=== PATIENT | female | born 1965 | race Two or more races ===

== ENCOUNTER 2018-05-26 10:07 | Emergency (ER) | payer OTHER ==
[~2018-05-26] VITALS: Ht 160 cm; Wt 65.8 kg
[2018-05-26 11:07] VITALS: BP 145/72
[2018-05-26] MEDS ORDERED: Acetaminophen 500mg (ES) tab PO ONE (11:15)
[2018-05-26 11:51] LABS: APPEARANCE,URINE CLEAR; BILIRUBIN, URINE NEGATIVE (NEGATIVE); GLUCOSE, URINE (UA) NEGATIVE (NEGATIVE); KETONES,URINE NEGATIVE (NEGATIVE); LEUKOCYTE ESTERASE ,URINE 2+ (NEGATIVE); NITRITE,URINE NEGATIVE (NEGATIVE); PH,URINE 7 (4.5-8.0); PROTEIN,URINE NEGATIVE (NEGATIVE); UROBILINOGEN,URINE NORMAL MG/DL (0.0-1.0)
[2018-05-26 11:55] LABS: BASOPHILS % (AUTO) 0.6 % (0.0-2.0); EOSINOPHILS % (AUTO) 1.6 % (0.0-3.0); HEMATOCRIT 40.5 % (37.0-47.0); HEMOGLOBIN 13.7 G/DL (12.0-16.0); LYMPHOCYTES % (AUTO) 20.4 % (20.0-45.0); MEAN CORPUSCULAR VOLUME 84 FL (80-99); MONOCYTES % (AUTO) 7.6 % (1.0-10.0); NEUTROPHILS % (AUTO) 69.9 % (45.0-75.0); PLATELET COUNT 182 K/UL (150-450); RED BLOOD COUNT 4.85 M/UL (4.20-5.40); RED CELL DISTRIBUTION WIDTH 12.3 % (11.6-14.8); WHITE BLOOD COUNT 5.5 K/UL (4.8-10.8)
[2018-05-26 11:59] LABS: COLOR,URINE YELLOW
[2018-05-26 12:10] LABS: ANION GAP 3 mmol/L (5-15); BLOOD UREA NITROGEN 13 mg/dL (7-18); CALCIUM 9.2 MG/DL (8.5-10.1); CARBON DIOXIDE 30 MMOL/L (21-32); CHLORIDE 106 MMOL/L (98-107); CREATININE 0.7 MG/DL (0.55-1.30); POTASSIUM 4.4 MMOL/L (3.5-5.1); SODIUM 139 MMOL/L (136-145)
[2018-05-26 12:14] LABS: ALANINE AMINOTRANSFERASE 20 U/L (12-78); ALBUMIN 3.8 G/DL (3.4-5.0); ALKALINE PHOSPHATASE 87 U/L (46-116); ASPARTATE AMINO TRANSFERASE 13 U/L (15-37); BILIRUBIN,TOTAL 0.5 MG/DL (0.2-1.0)
--- NOTE | 2018-05-26 12:27 | Diagnostic Imaging Report ---
Indication: Right hip pain Technique: 2 views of the right hip, one view of the pelvis Comparison: none Findings: No acute fractures. No dislocations. Joint spaces are preserved. Minimal degenerative proliferative changes of the anterior iliac spines are noted Impression: Negative
--- NOTE | 2018-05-26 13:25 | Emergency Room Report ---
History of Present Illness General Chief Complaint: Pain Source: Patient Present Illness HPI Patient presents with 1 week of increased R hip pain. Denies trauma. Pain rated 7/10 burning ache, some radiation to leg and groin - no knee pain. She does not know if she has gout or pseudogout. No fevers. Pain worsened with movement and bending. She has been using a cane. No dysuria. No change in bowels. She denies any prior studies to determine cause. She took tylenol last night which helped somewhat. She has diabetes. Diet controlled. No chest pain, calf swelling or pain. No dyspnea. Allergies: Coded Allergies: No Known Allergies (Unverified , 05/26/18) Patient History Past Medical History: see triage record Social History: Denies: smoking Social History Narrative at home Last Menstrual Period: 5 yrs ago Reviewed Nursing Documentation: PMH: Agreed; PSxH: Agreed Nursing Documentation-PMH Past Medical History: No History, Except For Hx Diabetes: Yes - controlled by diet Review of Systems All Other Systems: negative except mentioned in HPI Physical Exam Vital Signs Date Time Temp Pulse Resp B/P (MAP) Pulse Ox O2 Delivery O2 Flow Rate FiO2 05/26/18 10:11 98.6 99 18 145/72 98 Room Air 98.6 Sp02 EP Interpretation: reviewed, normal General Appearance: well appearing, no apparent distress, GCS 15, non-toxic Head: normocephalic, atraumatic Eyes: bilateral eye normal inspection, bilateral eye PERRL ENT: hearing grossly normal, normal voice Neck: full range of motion, supple Respiratory: lungs clear, no respiratory distress, speaking full sentences Cardiovascular #1: regular rate, rhythm, no edema Cardiovascular #2: 2+ radial (R), 2+ femoral (R), 2+ dorsalis pedis (R) Gastrointestinal: normal inspection, normal bowel sounds, non tender, soft, no mass Genitourinary: no CVA tenderness Musculoskeletal: back normal, gait/station normal - with cane, normal range of motion - with some tenderness R hip, no calf tenderness, pelvis stable Neurologic: alert, oriented x3, motor strength/tone normal, DTRs symmetric, sensory intact Psychiatric: mood/affect normal Skin: no rash Medical Decision Making Diagnostic Impression: Primary Impression: Right hip pain ER Course Patient presents with non-traumatic R hip pain. DDx: osteoarthritis, gout, pseudogout, strain, UTI, sacroiliitis amongst others. Evaluation with x-rays and labs including sed rate. Treatment with motrin and tylenol. Xrays with some djd, no fx. Labs with normal WBC, sed rate and CMP except for glucose 119. UA clear. Improved with treatment. Discussed treatment plan with patient. Patient stable for outpatient observation and treatment. Laboratory Tests Test 05/26/18 11:20 05/26/18 11:25 White Blood Count 5.5 K/UL (4.8-10.8) Red Blood Count 4.85 M/UL (4.20-5.40) Hemoglobin 13.7 G/DL (12.0-16.0) Hematocrit 40.5 % (37.0-47.0) Mean Corpuscular Volume 84 FL (80-99) Mean Corpuscular Hemoglobin 28.2 PG (27.0-31.0) Mean Corpuscular Hemoglobin Concent 33.8 G/DL (32.0-36.0) Red Cell Distribution Width 12.3 % (11.6-14.8) Platelet Count 182 K/UL (150-450) Mean Platelet Volume 7.3 FL (6.5-10.1) Neutrophils (%) (Auto) 69.9 % (45.0-75.0) Lymphocytes (%) (Auto) 20.4 % (20.0-45.0) Monocytes (%) (Auto) 7.6 % (1.0-10.0) Eosinophils (%) (Auto) 1.6 % (0.0-3.0) Basophils (%) (Auto) 0.6 % (0.0-2.0) Erythrocyte Sedimentation Rate 17 MM/HR (0-30) Prothrombin Time 10.1 SEC (9.30-11.50) Prothrombin Time INR 1.0 (0.9-1.1) PTT 24 SEC (23-33) Sodium Level 139 MMOL/L (136-145) Potassium Level 4.4 MMOL/L (3.5-5.1) Chloride Level 106 MMOL/L (98-107) Carbon Dioxide Level 30 MMOL/L (21-32) Anion Gap 3 mmol/L (5-15) L Blood Urea Nitrogen 13 mg/dL (7-18) Creatinine 0.7 MG/DL (0.55-1.30) Estimate Glomerular Filtration Rate > 60 mL/min (>60) Glucose Level 119 MG/DL (74-106) H Uric Acid 3.7 MG/DL (2.6-7.2) Calcium Level 9.2 MG/DL (8.5-10.1) Total Bilirubin 0.5 MG/DL (0.2-1.0) Aspartate Amino Transferase (AST) 13 U/L (15-37) L Alanine Aminotransferase (ALT) 20 U/L (12-78) Alkaline Phosphatase 87 U/L (46-116) C-Reactive Protein, Quantitative < 0.4 mg/dL (0.00-0.90) Total Protein 7.6 G/DL (6.4-8.2) Albumin 3.8 G/DL (3.4-5.0) Globulin 3.8 g/dL Albumin/Globulin Ratio 1.0 (1.0-2.7) Urine Color Yellow Urine Appearance Clear Urine pH 7 (4.5-8.0) Urine Specific [place] 1.010 (1.005-1.035) Urine Protein Negative (NEGATIVE) Urine Glucose (UA) Negative (NEGATIVE) Urine Ketones Negative (NEGATIVE) Urine Occult Blood 4+ (NEGATIVE) H Urine Nitrite Negative (NEGATIVE) Urine Bilirubin Negative (NEGATIVE) Urine Urobilinogen Normal MG/DL (0.0-1.0) Urine Leukocyte Esterase 2+ (NEGATIVE) H Urine RBC 2-4 /HPF (0 - 2) H Urine WBC 2-4 /HPF (0 - 2) Urine Squamous Epithelial Cells Few /LPF (NONE/OCC) Urine Bacteria Occasional /HPF (NONE) Other X-Ray Diagnostic Results Other X-Ray Diagnostic Results #1: X-Ray ordered: R hip # of Views/Limited Vs Complete: 2 View Indication: Pain Interpretation: no dislocation, no soft tissue swelling, no fractures, other - djd Impression: Other Electronically Signed by: Electronically signed by Yovany Mckeon MD Other X-Ray Diagnostic Results #2: X-Ray ordered: pelvis # of Views/Limited Vs Complete: 1 View Indication: Pain Interpretation: no dislocation, no soft tissue swelling, no fractures, nonspecific bowel gas Impression: Other Electronically Signed by: Electronically signed by Yovany Mckeon MD Last Vital Signs Date Time Temp Pulse Resp B/P (MAP) Pulse Ox O2 Delivery O2 Flow Rate FiO2 05/26/18 15:31 98.6 96 18 145/72 98 Room Air 98.6 Status: improved Disposition: HOME, SELF-CARE Condition: Improved Scripts Tramadol Hcl* (ULTRAM*) 50 Mg Tablet 50 MG ORAL Q6H PRN for For Pain, #10 TAB 0 Refills Prov: Yovany Mckeon M.D. 05/26/18 Ibuprofen* (MOTRIN*) 600 Mg Tablet 600 MG ORAL Q6H PRN for For Pain, #20 TAB Prov: Yovany Mckeon M.D. 05/26/18 Referrals: NOT CHOSEN SPEEDY/,REFERRING (PCP) Yovany Mckeon M.D. May 26, 2018 13:25
[2018-05-26] MEDS ORDERED: IBUPROFEN600 MG ORAL (13:37)
[2018-05-26] MEDS ORDERED: TRAMADOL HCL50 MG ORAL (13:37)
[2018-05-26 15:31] VITALS: BP 145/72
== END 2018-05-26 14:00 | disposition home or self-care (01) ==
LOC: EMR 10:39
DX: M25.551 Pain in right hip (principal); E11.9 Type 2 diabetes mellitus without complications
CPT/HCPCS: 36415; 72170; 80053; 81001; 84550; 85025; 85610; 85651; 85730; 86140; 99284

== ENCOUNTER 2019-11-19 13:02 | Outpatient (CLI) | payer MEDICAID ==
[2019-11-19 11:20] VITALS: BP 109/44
[~2019-11-19 13:02] MED LIST: IBUPROFEN600 MG ORAL; TRAMADOL HCL50 MG ORAL
--- NOTE | 2019-11-19 15:15 | Consultation ---
DATE OF CONSULTATION: 11/19/2019 CHIEF COMPLAINT: Referral for screening colonoscopy. PAST MEDICAL HISTORY: None. PAST SURGICAL HISTORY: MEDICATIONS: Multivitamin. FAMILY HISTORY: Father had diabetes and hypertension. Sister had cervical cancer. SOCIAL HISTORY: The patient denies any tobacco, alcohol, or drug abuse. ALLERGIES: No known allergies. REVIEW OF SYSTEMS: A 10-point review of systems was performed and grossly negative. PHYSICAL EXAMINATION: VITAL SIGNS: Temperature 98.1, blood pressure 101/44, pulse 63, respirations 20. HEENT: Normocephalic and atraumatic. Sclerae anicteric. NECK: Supple. No evidence of obvious lymphadenopathy. CARDIOVASCULAR: Regular rate and rhythm. Plus S1 and S2. No obvious murmur. LUNGS: Clear to auscultation bilaterally. ABDOMEN: Positive bowel sounds. Soft and nontender. No rebound. No guarding. No peritoneal sign. EXTREMITIES: No cyanosis. No clubbing. No edema. ASSESSMENT AND PLAN: The patient is a 54-year-old female referred for screening colonoscopy. Plan to schedule her when authorization is obtained. The patient was given information about colonoscopy. Risks and benefits of procedure were explained to her. The prep was given to her, she agreed to it. Thierno Girard M.D. DR: No JOB#: [id number] CC:
[2019-11-19] MEDS ORDERED: MULTIVITAMINS1 EAC2 ORAL (16:01)
== END 2019-11-19 15:30 | disposition home or self-care (01) ==
LOC: PAN 13:02
DX: Z01.818 Encounter for other preprocedural examination (principal)
CPT/HCPCS: G0463